=== PATIENT | male | born 1965 | race Caucasian/White ===

== ENCOUNTER 2017-01-27 03:11 | Emergency (ER) | payer MEDICARE, MEDICAID ==
[~2017-01-27] VITALS: Ht 180.3 cm; Wt 98.0 kg
[2017-01-27] MEDS ORDERED: ONDANSETRON HCL 4MG/2ML VIAL IV STA (04:54)
[2017-01-27] MEDS ORDERED: MORPHINE SULFATE 4 MG/ML CPJ (NOT FOR IM USE) IV STA (04:54)
[2017-01-27] MEDS ORDERED: SODIUM CHLORIDE 0.9% 1,000 ML IV ONE (04:54)
[2017-01-27 07:00] VITALS: BP 117/62
== END 2017-01-27 07:08 | disposition home or self-care (01) ==
LOC: ER 03:29
DX: G89.18 Other acute postprocedural pain (principal); K62.89 Other specified diseases of anus and rectum; Z98.890 Other specified postprocedural states
CPT/HCPCS: 96361; 96374; 96375; 99285; J2270; J2405; J7030

== ENCOUNTER 2017-03-13 09:11 | Day surgery (SDC) | payer MEDICARE, MEDICAID ==
[~2017-03-13] VITALS: Ht 180.3 cm; Wt 96.0 kg
[2017-03-13] MEDS ORDERED: BUPIVACAINE HCL/PF 0.75% (7.5MG/ML) 10ML ONE (09:49)
[2017-03-13] MEDS ORDERED: CIPROFLOXACIN 0.3% OPHTH SOLN 2.5ML ONE (09:49)
[2017-03-13] MEDS ORDERED: TETRACAINE 0.5% OPHTH DROPS 4ML ONE (09:49)
[2017-03-13] MEDS ORDERED: NEO/POLYMYX B SULF/DEXAMETH OPHTH OINT 3.5GM ONE (09:49)
[2017-03-13] MEDS ORDERED: LIDOCAINE HCL 2%/EPINEPHRINE 1:100,000 20 ML VIAL INFIL ONE (09:49)
[2017-03-13] MEDS ORDERED: BALANCED SALT IRRIG SOLN 15ML ONE (09:49)
[2017-03-13 09:55] VITALS: BP 115/78
[2017-03-13] MEDS ORDERED: ACETAZOLAMIDE SODIUM 500MG/VIAL IV ONE (10:15)
[2017-03-13 10:41] LABS: INR 1.1
[2017-03-13 10:47] LABS: CARBON DIOXIDE 26 mEq/L (21-32); CHLORIDE 109 mEq/L (98-107)
[2017-03-13 10:59] LABS: BASOPHILS % 0.8 % (0.0-2.0); EOSINOPHILS % 4.3 % (0.0-5.0); HEMATOCRIT. 34.5 % (42.0-52.0); HEMOGLOBIN. 10.6 g/dL (14.0-18.0); LYMPHOCYTES % 20.1 % (20.0-50.0); MEAN CORPUSCULAR HEMOGLOBIN 22.8 pg (28.0-32.0); MEAN CORPUSCULAR VOLUME 73.9 fL (80.0-94.0); MEAN PLATELET VOLUME 9.7 fl (7.4-10.4); MONOCYTES % 7.5 % (2.0-8.0); NEUTROPHILS % 67.3 % (40.0-76.0); PLATELET 257 x1000/uL (130-400); RED BLOOD CELL COUNT 4.67 mill/uL (4.7-6.1); RED CELL DISTRIBUTION WIDTH 23.2 % (11.6-14.6)
[2017-03-13] MEDS ORDERED: SODIUM CHLORIDE 0.9% 10ML VIAL ONE (11:23)
[2017-03-13] MEDS ORDERED: CEFAZOLIN SODIUM 1000MG/VIAL ONE (11:23)
[2017-03-13] MEDS ORDERED: FENTANYL CITRATE/PF 50MCG/ML 2ML VIAL ONE (11:25)
[2017-03-13] MEDS ORDERED: MIDAZOLAM HCL 2 MG/2 ML VIAL ONE (11:26)
[2017-03-13] MEDS ORDERED: TRIAMCINOLONE ACETONIDE 40MG/ML 1ML VIAL ONE (11:28)
[2017-03-13] MEDS ORDERED: DIPHENHYDRAMINE 50MG/ML VIAL ONE (11:44)
[2017-03-13 11:55] LABS: PLATELET ESTIMATE NORMAL
[2017-03-13] MEDS ORDERED: MORPHINE SULFATE 2 MG/ML CPJ (NOT FOR IM USE) IV PRN (14:00)
[2017-04-11] MEDS ORDERED: METH50TA5 PO (17:01)
[2017-04-11] MEDS ORDERED: FERR325T6 PO (17:01)
[2017-04-11] MEDS ORDERED: PRED10DR BOTHEYE (17:01)
== END 2017-03-13 14:05 | disposition home or self-care (01) ==
LOC: ER 10:45 → OR 12:50 → CANBEDREQ 14:11 → ER 18:37
PROVIDERS: ATTEND Ophthalmology
DX: H40.89 Other specified glaucoma (principal); R00.1 Bradycardia, unspecified; I51.7 Cardiomegaly; D64.9 Anemia, unspecified; Z87.19 Personal history of other diseases of the digestive system; Z98.890 Other specified postprocedural states
CPT/HCPCS: 36415; 66180; 71010; 80053; 85025; 85610; 93005; A4216; C1783; J0690; J1120; J1200; J2250; J3010; J3301; J3490

== ENCOUNTER 2017-04-12 09:16 | Day surgery (SDC) | payer MEDICARE, MEDICAID ==
[~2017-04-12] VITALS: Ht 180.3 cm; Wt 95.7 kg
[~2017-04-12 09:16] MED LIST: FERR325T6 PO; METH50TA5 PO; PRED10DR BOTHEYE
[2017-04-12] MEDS ORDERED: LACTATED RINGERS 1,000 ML IV SCH (10:20)
[2017-04-12] MEDS ORDERED: HYALURONATE SODIUM 14 MG/ML 0.85ML SYRINGE IO ONE (11:41)
[2017-04-12] MEDS ORDERED: TRIAMCINOLONE ACETONIDE 40MG/ML 1ML VIAL ONE (11:41)
[2017-04-12] MEDS ORDERED: TERB250T11 PO (12:54)
[2017-04-12] MEDS ORDERED: PROPOFOL 200MG/20ML VIAL IV ONE ×2 (13:40→13:41)
[2017-04-12] MEDS ORDERED: LIDOCAINE HCL 1% 20ML VIAL (Pyxis) INJ ONE (13:40)
[2017-04-12] MEDS ORDERED: MIDAZOLAM HCL 2 MG/2 ML VIAL ONE (13:54)
[2017-04-12] MEDS ORDERED: FENTANYL CITRATE/PF 50MCG/ML 2ML VIAL ONE (13:55)
[2017-04-12] MEDS ORDERED: BUPIVACAINE HCL/PF 0.75% (7.5MG/ML) 10ML ONE (13:57)
[2017-04-12] MEDS ORDERED: PREDNISOLONE ACETATE 1% OPHTH DROPS 1ML ONE (13:57)
[2017-04-12] MEDS ORDERED: BALANCED SALT IRRIG SOLN 15ML ONE (13:57)
[2017-04-12] MEDS ORDERED: NEO/POLYMYX B SULF/DEXAMETH OPHTH OINT 3.5GM ONE (13:57)
[2017-04-12] MEDS ORDERED: TETRACAINE 0.5% OPHTH DROPS 4ML ONE (13:57)
[2017-04-12] MEDS ORDERED: CIPROFLOXACIN 0.3% OPHTH SOLN 2.5ML ONE (13:57)
[2017-04-12] MEDS ORDERED: LIDOCAINE HCL 2%/EPINEPHRINE 1:100,000 20 ML VIAL INFIL ONE (13:57)
[2017-04-12] MEDS ORDERED: CEFAZOLIN SODIUM 1000MG/VIAL ONE (14:06)
[2017-04-12] MEDS ORDERED: SODIUM CHLORIDE 0.9% 1,000 ML IV SCH (14:09)
[2017-04-12] MEDS ORDERED: ONDANSETRON HCL 4MG/2ML VIAL IV PRN (14:15)
[2017-04-12] MEDS ORDERED: MORPHINE SULFATE 4 MG/ML CPJ (NOT FOR IM USE) IV PRN (14:15)
== END 2017-04-12 15:30 | disposition home or self-care (01) ==
LOC: OR 09:16
PROVIDERS: ATTEND Ophthalmology
DX: H40.1120 Primary open-angle glaucoma, left eye, stage unspecified (principal); E66.3 Overweight; D64.9 Anemia, unspecified
CPT/HCPCS: 0191T; 66183; J0690; J2250; J3010; J3301; J3490; J7120; J2704

== ENCOUNTER 2017-05-31 08:42 | Day surgery (SDC) | payer MEDICARE, MEDICAID ==
[~2017-05-31] VITALS: Ht 180.3 cm; Wt 95.7 kg
[~2017-05-31 08:42] MED LIST changes: +TERB250T11 PO
[2017-05-31 09:35] LABS: BASOPHILS % 0.6 % (0.0-2.0); EOSINOPHILS % 3.8 % (0.0-5.0); HEMATOCRIT. 39.6 % (42.0-52.0); LYMPHOCYTES % 21.2 % (20.0-50.0); MEAN CORPUSCULAR HEMOGLOBIN 29.6 pg (28.0-32.0); MEAN CORPUSCULAR VOLUME 90.4 fL (80.0-94.0); MEAN PLATELET VOLUME 9.5 fl (7.4-10.4); MONOCYTES % 5.3 % (2.0-8.0); NEUTROPHILS % 69.1 % (40.0-76.0); PLATELET 186 x1000/uL (130-400); RED BLOOD CELL COUNT 4.38 mill/uL (4.7-6.1); RED CELL DISTRIBUTION WIDTH 19.4 % (11.6-14.6)
[2017-05-31 09:52] LABS: CHLORIDE 109 mEq/L (98-107)
[2017-05-31 09:57] LABS: CARBON DIOXIDE 28 mEq/L (21-32)
[2017-05-31] MEDS ORDERED: LACTATED RINGERS 1,000 ML IV ONE (10:30)
[2017-05-31] MEDS ORDERED: CIPROFLOXACIN 0.3% OPHTH SOLN 2.5ML ONE (12:02)
[2017-05-31] MEDS ORDERED: LIDOCAINE HCL/PF 2% 20 MG/ML 10ML VIAL ONE (12:02)
[2017-05-31] MEDS ORDERED: LIDOCAINE HCL 2%/EPINEPHRINE 1:100,000 20 ML VIAL INFIL ONE (12:02)
[2017-05-31] MEDS ORDERED: BUPIVACAINE HCL/PF 0.75% (7.5MG/ML) 10ML ONE (12:02)
[2017-05-31] MEDS ORDERED: PREDNISOLONE ACETATE 1% OPHTH DROPS 1ML ONE (12:02)
[2017-05-31] MEDS ORDERED: NEO/POLYMYX B SULF/DEXAMETH OPHTH OINT 3.5GM ONE (12:02)
[2017-05-31] MEDS ORDERED: BALANCED SALT IRRIG SOLN 15ML ONE (12:02)
[2017-05-31] MEDS ORDERED: TRIAMCINOLONE ACETONIDE 40MG/ML 1ML VIAL ONE (12:36)
[2017-05-31] MEDS ORDERED: ONDANSETRON HCL 4MG/2ML VIAL IV PRN (13:00)
[2017-05-31] MEDS ORDERED: LABETALOL HCL 20MG/4ML CARPUJECT IV PRN (13:00)
[2017-05-31] MEDS ORDERED: MEPERIDINE HCL/PF 25MG/ML CPJ IV PRN (13:00)
[2017-05-31] MEDS ORDERED: HYDROMORPHONE HCL/PF 2MG/ML CPJ IV PRN (13:00)
== END 2017-05-31 14:30 | disposition home or self-care (01) ==
LOC: OR 08:42
PROVIDERS: ATTEND Ophthalmology
DX: H40.89 Other specified glaucoma (principal); F10.21 Alcohol dependence, in remission; E11.319 Type 2 diabetes mellitus with unspecified diabetic retinopathy without macular edema; Z86.2 Personal history of diseases of the blood and blood-forming organs and certain disorders involving the immune mechanism; Z79.899 Other long term (current) drug therapy
CPT/HCPCS: 36415; 66180; 80048; 85025; 93005; C1783; J3301; J3490; J7120

== ENCOUNTER 2022-02-24 23:23 | Emergency (ER) | payer MEDICARE, MEDICAID ==
[~2022-02-24] VITALS: Ht 182.9 cm; Wt 120.0 kg
[~2022-02-24 23:23] MED LIST changes: -TERB250T11 PO; +TERB250T88 PO
[2022-02-24 23:38] VITALS: BP 137/86
[2022-02-25] MEDS ORDERED: ONDANSETRON 4MG ODT PO STA (00:18)
[2022-02-25] MEDS ORDERED: MAGNESIUM/ALUMINUM HYDROXIDE/SIMETHICONE 30ML UDC PO STA (00:18)
[2022-02-25 00:48] LABS: BASOPHILS % 0.3 % (0.0-2.0); EOSINOPHILS % 0.2 % (0.0-5.0); HEMATOCRIT. 42.7 % (42.0-52.0); HEMOGLOBIN. 13.7 g/dL (14.0-18.0); LYMPHOCYTES % 7.7 % (20.0-50.0); MEAN CORPUSCULAR HEMOGLOBIN 28.5 pg (28.0-32.0); MEAN CORPUSCULAR VOLUME 88.6 fL (80.0-94.0); MEAN PLATELET VOLUME 9.7 fl (7.4-10.4); MONOCYTES % 5.3 % (2.0-8.0); NEUTROPHILS % 86.5 % (40.0-76.0); PLATELET 258 x1000/uL (130-400); RED BLOOD CELL COUNT 4.82 mill/uL (4.7-6.1); RED CELL DISTRIBUTION WIDTH 14.8 % (11.6-14.6)
[2022-02-25 00:54] LABS: CHLORIDE 104 mEq/L (98-107)
[2022-02-25] MEDS ORDERED: POTASSIUM CHLORIDE 20MEQ TABLET SR PO ONE (01:15)
[2022-02-25] MEDS ORDERED: OMEP40CA20 MT ×3 (01:17→01:23)
[2022-02-25] MEDS ORDERED: ONDA4TAB50 MT ×3 (01:17→01:23)
== END 2022-02-25 01:44 | disposition home or self-care (01) ==
LOC: ER 23:31
DX: R10.13 Epigastric pain (principal); E87.6 Hypokalemia; H40.9 Unspecified glaucoma
CPT/HCPCS: 36415; 80053; 83690; 85025; 99284; Q0162